=== PATIENT | male | born 1935 | race Caucasian/White ===

== ENCOUNTER 2017-01-21 11:08 | Day surgery (SDC) | payer BC ==
[2017-01-19 14:59] VITALS: BMI 31.2
[2017-01-21 13:47] VITALS: TEMP 98.1
[2017-01-21 14:44] VITALS: BP 137/50; PULSE 54
--- NOTE | 2017-01-24 09:36 | PATH ---
Surgical Pathology Report Patient Name: ORI SORIA [facility]. Rec. #: [id number] /Age/Gender: 1935 (Age: 81) / M Account: [id number] Location: ASU-ENDOSCOPY Taken: 01/21/2017 Received: 01/21/2017 Reported: 01/24/2017 Physicians: Kandice Ferrer M.D. Specimen(s) Received BX PROXIMAL TRANSVERSE COLON POLYP Clinical History Preoperative diagnosis: History of adenomatous polyps Postoperative diagnosis: Diverticulosis, colon polyp Final Diagnosis COLON, PROXIMAL TRANSVERSE, BIOPSY: TUBULAR ADENOMA. Electronically Signed Howard Crane M.D. Gross Description Received in formalin, labeled "biopsy proximal transverse colon polyp" are 2 de, irregular portions of soft tissue measuring 0.2 and 0.4 cm. in greatest dimension. The specimens are submitted in toto in one cassette. 01/21/201701/21/2017
== END 2017-01-21 14:46 | disposition home or self-care (01) ==
LOC: JASU-ENDO 11:08
PROVIDERS: ATTEND Internal Medicine Gastroenterology
PROC: 0DBL8ZX Excision of Transverse Colon, Via Natural or Artificial Opening Endoscopic, Diagnostic (ICD-10-PCS; principal; 2017-01-21 12:30)
DX: Z86.010 Personal history of colon polyps (principal); D12.3 Benign neoplasm of transverse colon; K57.30 Diverticulosis of large intestine without perforation or abscess without bleeding
CPT/HCPCS: 88305-TC

== ENCOUNTER 2018-04-15 14:07 | Emergency (ER) | payer BC ==
[2018-04-15 14:40] VITALS: BMI 37.1
--- NOTE | 2018-04-15 16:47 | PDOC ---
Attending Attestation - Resident Resident Name: Sapphire Jamil - HPI HPI: 04/15/18 18:45 The patient is an 83-year-old female with a past medical history significant for HTN, HLD, BPH, hx of diverticulitis presents to the emergency department with LLQ pain. The patient presents with LLQ pain since last night, thats 5/10 in severity that increases to 9/10 towards night time. The patient reports he took medication at 5:00 am, which help with the pain. The patient reports the pain presented again at 11:00 am, which slightly improved by 1:00 pm which his daughter arrived. The patient reports associated symptoms of hematuria. The patient reports hx of diverticulitis, however, states the pain isnt similar to prior episode. Allergies: NKDA Urologist: Dr. watts PCP: Dr. Neil GI: Dr. Ferrer. - Physicial Exam PE: 04/15/18 18:46 CONSTITUTIONAL: Well-appearing; well-nourished; in no apparent distress HEAD: Normocephalic; atraumatic EYES: PERRL; EOM intact ENMT: External appears normal; normal oropharynx NECK: Supple; non-tender; no cervical lymphadenopathy CARD: Normal S1, S2; no murmurs, rubs, or gallops RESP: Normal chest excursion with respiration; breath sounds clear and equal bilaterally; no wheezes, rhonchi, or rales ABD: No LLQ tenderness to palpation Soft, non-distended; non-tender; no palpable organomegaly, no palpable hernias. No guarding or rigidity. No CVA tenderness. EXT: Normal ROM in all four extremities; non-tender to palpation; distal pulses intact SKIN: Warm, dry, no rash NEURO: No focal neurological deficiencies. - Medical Decision Making 04/15/18 18:45 Documentation prepared by Pauline Richardson, acting as medical driver for Soni Kovacs MD. <Pauline Richardson - Last Filed: 04/15/18 18:45> - Physicial Exam PE: 04/15/18 19:39 I, Dr. Soni Kovacs, attest that the scribes documentation that appears above has been prepared under my direction and personally reviewed by me. I confirmed that the note above accurately reflects all work, treatment, procedures, and medical decision-making performed by me. Pt's labs noted and currently has a normal exam. Pt with blood in urine ct of abd and pelvis ordered to r/o kidney stone. Pt has scheduled appointment with urology already for next week. Hand Sander anticipates pt will be dc'd home after ct results with out pt f/u with urology , if ct is negative ,pt may need urine cytology to r/o bladder cancer and or cystoscopy. <Soni Kovacs - Last Filed: 04/15/18 19:41>
--- NOTE | 2018-04-15 17:04 | PDOC ---
History of Present Illness - General Chief Complaint: Pain, Acute Stated Complaint: STOMACH PAIN Time Seen by Provider: 04/15/18 16:09 - History of Present Illness Initial Comments: Sam Baker is an 83yo man with a PMH of HTN, diverticulosis, elevated LFTs, wheezing who presents with intermittent LLQ pain since last night. He states that the pain is a non-radiating ache in the LLQ. It first started last night, reaching 9/10 in intensity overnight. He took acetaminophen, and the pain nearly resolved at around 5am. Mr Baker was able to sleep at that point, but the pain started again at around 11am. He took 400mg ibuprofen, and the pain resolved again by 1pm. He decided to present to the ED anyway, however, as the pain was so severe when present. Mr Baker denies any symptoms associated with the pain including diarrhea, constipation, nausea/vomiting, dysuria, hematuria, fever, or shivering. He does note that his urine was unusually dark this morning. He also endorses a h/o BPH with low flow and frequent nocturia, but there have been no changes recently. He was previously on tamsulosin but decided to stop taking it; he has an apointment scheduled with urology on Tuesday. He does report several episodes of uncomplicated diverticulitis in the past, treated as an outpatient. Those episodes were very different than the current LLQ pain. With the diverticulitis, the pain was located much lower, nearly in the groin, and associated with bowel urgency and some diarrhea. The current pain is higher up without associated GI symptoms. Other than the current pain, Mr Baker has been feeling well recently and denies any other complaints. Past History - Past Medical History Allergies/Adverse Reactions: Allergies Allergy/AdvReac Type Severity Reaction Status Date / Time No Known Drug Allergies Allergy Verified 03/15/12 09:34 Home Medications: Ambulatory Orders Cholecalciferol (Vitamin D3) [Vitamin D] 1,000 unit PO DAILY 11/26/14 Amlodipine Besylate [Norvasc -] 5 mg PO DAILY 01/19/17 Atorvastatin Calcium [Lipitor] 20 mg PO AM 04/15/18 Montelukast Na [Singulair -] 1 mg PO DAILY 04/15/18 Anemia: No Asthma: No Cancer: No Cardiac Disorders: No CVA: No COPD: No CHF: No Dementia: No Diabetes: No GI Disorders: Yes (GASTRIC ULCER BLEED-2006, DIVERTICULITIS) Disorders: Yes (BPH) HTN: Yes Hypercholesterolemia: Yes Liver Disease: No Seizures: No Thyroid Disease: No - Surgical History Abdominal Surgery: No Appendectomy: No Cardiac Surgery: No Cholecystectomy: No Lung Surgery: No Neurologic Surgery: No Orthopedic Surgery: Yes (pin left elbow, yrs ago, 03/02/12) - Suicide/Smoking/Psychosocial Hx Smoking History: Never smoked Have you smoked in the past 12 months: No Hx Alcohol Use: No Drug/Substance Use Hx: No Substance Use Type: None Hx Substance Use Treatment: No Review of Systems - Review of Systems Comments:: General: No fevers, no chills, no weight or appetite change, no malaise HEENT: No changes in vision, no changes in hearing, no congestion, no sore throat CV: No chest pain, no palpitations, no LE edema Pulm: No SOB, no cough, no wheezing GI: No nausea or vomiting, no change in bowel habits, no melena. +LLQ pain : No frequency, no urgency, no dysuria. +dark urine, +BPH Musc: No back pain, no joint swelling, no recent injury Skin: No rash, no lesions, no erythema Endo: No excessive thirst, no heat/cold intolerance Heme: No unusual bruising or bleeding, no swollen glands Neuro: No syncope, no numbness/tingling, no focal weakness Vasc: No claudication Psych: No recent change in mood, no SI or HI *Physical Exam - Vital Signs Last Vital Signs Temp Pulse Resp BP Pulse Ox 97.9 F 85 19 163/62 95 04/15/18 14:38 04/15/18 14:38 04/15/18 14:38 04/15/18 14:38 04/15/18 14:38 - Physical Exam Comments: General: Comfortable, no acute distress HEENT: PERRL, EOMI, MMM, voice normal, normal neck ROM, no LAD Cards: RRR, no murmur appreciated Pulm: Comfortable on room air, clear to auscultation bilaterally Abd: Soft, nondistended. Minimal LLQ tenderness. No rebound, rigidity, or guarding. : No CVA tenderness Ext: Atraumatic. No LE edema. ROM intact. Strength 5/5 and equal bilaterally Vasc: Extremities WWP Skin: Normal color, no rashes or lesions Neuro: A&Ox3, CN grossly intact, normal speech, motor/sensory grossly intact and symmetric Psych: Mood appropriate to situation Moderate Sedation - Procedure Monitoring Vital Signs: Procedure Monitoring Vital Signs Temperature 97.9 F 04/15/18 14:38 Pulse Rate 85 04/15/18 14:38 Respiratory Rate 19 04/15/18 14:38 Blood Pressure 163/62 04/15/18 14:38 O2 Sat by Pulse Oximetry (%) 95 04/15/18 14:38 ED Treatment Course - LABORATORY CBC & Chemistry Diagram: 04/15/18 17:37 04/15/18 17:37 Medical Decision Making - Medical Decision Making 04/15/18 17:00 Sam Baker is an 83yo man with a PMH of HTN, diverticulosis, elevated LFTs, wheezing who presents with intermittent LLQ pain since last night. He denies any associated symptoms, and he reports that this does not feel the same as previous episodes of diverticulitis in the past. - No report of diarrhea, n/v, or other GI symptoms. Given location and known diverticulosis, could be diverticulitis despite not having the exact symptoms as previous episodes - Reports "dark" urine this morning. Could potentially be kidney stone at UVJ or distal ureter. - CBC, CMP, UA sent - Will most likely need imaging. CT kidney stone v abd/pelvis depending on lab results - States pain is 5/10 currently, does not want any pain meds currently 04/15/18 18:36 - Labs reviewed. CBC unremarkable. UA with 1148 RBCs, no sign of infection. Suspect kidney stone. Chemistry notable for mildly elevated Cr to 1.1 from baseline 0.7, Ca 10.3. - 1L NS ordered - CT renal stone ordered for suspected stone 04/15/18 20:59 - CT w/ 0.4mm obstructing R proximal ureteral stone - Will provide with urine strainer and d/c home. Will discuss home care and follow up with Mr Baker. Discussed with Dr Paula. Sapphire Jamil PGY1 *DC/Admit/Observation/Transfer Diagnosis at time of Disposition: Kidney stone on left side - Discharge Dispostion Condition at time of disposition: Stable - Referrals Referrals: Jeffery Neil MD [Primary Care Provider] - Garret Lu MD [Staff Physician] - - Patient Instructions Printed Discharge Instructions: DI for Kidney Stones Additional Instructions: Discharge Instructions: You were seen in the emergency department for abdominal pain, and you were found to have a kidney stone. You had a CT scan to confirm this, and the stone was found to be 4mm in size and located in the upper left ureter. This indicates that the stone will most likely pass on its own. Home Care: - You have been prescribed a short course of tamsulosin (Flomax) to help pass the stone. You may wish to discuss continuing this medication with your urologist to help treat your enlarged prostate. - You may use over the counter pain medications such as ibuprofen (Motrin, Advil ) 600mg every 6 hours as needed for pain. If you have continued pain, you may alternate this medication with acetaminophen (Tylenol) 650-1000mg. - Make sure you are drinking plenty of fluids to help pass the kidney stone - You have been provided a urine strainer. If you are able to catch the kidney stone when you pass it, bring the stone to your follow up urology appointment. Follow Up: - You indicated that you have a urology appointment scheduled for next Tuesday. Make sure you go to this appointment, and let your urologist know about the kidney stone. If your pain does not improve over the next few days, you may wish to reschedule your appointment for earlier in the week. - Seek immediate medical care if you have worsening of your symptoms, you do not pass the stone within 3-4 days, you stop making urine entirely, you have noticeable blood in your urine, you develop fevers to 101F, or you have any medical emergency. - Post Discharge Activity
[2018-04-15 17:44] LABS: BASO % 1.4 % (0-2.0); EOS % 2.1 % (0-4.5); HEMATOCRIT 43.7 % (35.4-49); HEMOGLOBIN 15.3 GM/dL (11.7-16.9); LYMPH % 22.4 % (8-40); MCH 31.8 pg (25.7-33.7); MEAN CELL VOLUME 90.9 fl (80-96); MEAN PLT VOLUME 8.1 fl (7.5-11.1); MONO % 8.6 % (3.8-10.2); NEUT % 65.5 % (42.8-82.8); PLATELET COUNT 212 K/MM3 (134-434); RDW 14.4 % (11.9-15.9); WHITE BLOOD COUNT 9.7 K/mm3 (4.0-10.0)
[2018-04-15 17:45] LABS: URINE APPEARANCE CLOUDY; URINE BILIRUBIN NEGATIVE (<2.0 mg/dL); URINE COLOR YELLOW; URINE GLUCOSE (UA) NEGATIVE (NEGATIVE); URINE KETONE NEGATIVE (NEGATIVE); URINE LEUK ESTERASE NEGATIVE (NEGATIVE); URINE NITRITE NEGATIVE (NEGATIVE); URINE PROTEIN 2+ (NEGATIVE); URINE UROBILINOGEN NEGATIVE mg/dL (0.2-1.0)
[2018-04-15 18:00] LABS: URINE HYALINE CAST 3 /lpf; URINE MUCUS FEW
[2018-04-15 18:20] LABS: ALK PHOS 107 U/L (45-117); ANION GAP 6 MMOL/L (8-16); BILIRUBIN,TOTAL 0.7 mg/dL (0.2-1); BLOOD UREA NITROGEN 14 mg/dL (7-18); CALCIUM 10.3 mg/dL (8.5-10.1); CHLORIDE 110 mmol/L (98-107); CO2 26 mmol/L (21-32); CREATININE 1.1 mg/dL (0.55-1.3); GLUCOSE,RANDOM 96 mg/dL (74-106); MAGNESIUM 2.1 mg/dL (1.8-2.4); PHOSPHOROUS 3.1 mg/dL (2.5-4.9); POTASSIUM 4.4 mmol/L (3.5-5.1); SGOT/AST 28 U/L (15-37); SGPT/ALT 48 U/L (13-61); SODIUM 143 mmol/L (136-145); TOT PROT 7.2 g/dl (6.4-8.2)
[2018-04-15] MEDS ORDERED: SODIUM CHLORIDE 0.9% 500 ML INFUS.BAG IV ONE (18:35)
--- NOTE | 2018-04-15 20:43 | PDOC ---
*Physical Exam - Vital Signs Last Vital Signs Temp Pulse Resp BP Pulse Ox 97.9 F 85 19 163/62 95 04/15/18 14:38 04/15/18 14:38 04/15/18 14:38 04/15/18 14:38 04/15/18 14:38 ED Treatment Course - LABORATORY CBC & Chemistry Diagram: 04/15/18 17:37 04/15/18 17:37 - ADDITIONAL ORDERS Additional order review: Laboratory Results 04/15/18 04/15/18 17:37 17:37 Sodium 143 Potassium 4.4 Chloride 110 H Carbon Dioxide 26 Anion Gap 6 L BUN 14 Creatinine 1.1 Creat Clearance w eGFR > 60 Random Glucose 96 Calcium 10.3 H Phosphorus 3.1 Magnesium 2.1 Total Bilirubin 0.7 AST 28 ALT 48 Alkaline Phosphatase 107 Total Protein 7.2 Albumin 4.0 Urine Color Yellow Urine Appearance Cloudy Urine pH 5.0 Ur Specific Rindge 1.018 Urine Protein 2+ H Urine Glucose (UA) Negative Urine Ketones Negative Urine Blood 3+ H Urine Nitrite Negative Urine Bilirubin Negative Urine Urobilinogen Negative Ur Leukocyte Esterase Negative Urine WBC (Auto) 5 Urine RBC (Auto) 1148 Hyaline Casts 3 Urine Mucus Few 04/15/18 17:37 RBC 4.80 MCV 90.9 MCHC 35.0 RDW 14.4 MPV 8.1 Neutrophils % 65.5 Lymphocytes % 22.4 D Monocytes % 8.6 Eosinophils % 2.1 Basophils % 1.4 - Medications Given in the ED: ED Medications Discontinued Medications Generic Name Dose Route Start Last Admin Trade Name Freq PRN Reason Stop Dose Admin Sodium Chloride 1,000 ml 04/15/18 18:35 04/15/18 18:39 Normal Saline - IV 04/15/18 18:36 1,000 ml ONCE ONE Administration Medical Decision Making - Medical Decision Making 04/15/18 20:49 Patient Name: ORI SORIA THIS IS A PRELIMINARY REPORT FROM [facility] [employer] DATE OF SERVICE: 2018-04-15 19:24:50 IMAGES: 499 EXAM: CT abdomen and pelvis without IV contrast. Clinical indication: Rule out stone. No further information is provided. There are no prior studies available for comparison. Technique: Axial unenhanced CT images of the abdomen and pelvis were obtained followed by coronal and sagittal reformats. Findings: Visualized portions of the lower thorax are within normal limits. There is no free intra-abdominal gas or fluid. Within segment 4 of the liver there is a low density well-circumscribed nodule which likely represents an hepatic cyst or hemangioma. There is a similar smaller one within segment 3 of the liver. The remainder of the liver is unremarkable. The gallbladder, adrenals, pancreas, and spleen are normal. Within the proximal aspect of the left ureter there is a 0.4 cm stone causing left-sided hydronephrosis and some left-sided perinephric fat stranding. There are no other renal calculi bilaterally. There are some probable left-sided parapelvic cysts. The bilateral kidneys are otherwise unremarkable, given limitations of an unenhanced CT. There are no enlarged abdominal or pelvic lymph nodes, by size criteria. The urinary bladder is unremarkable. The prostate is significantly enlarged measuring 7.2 cm in maximum diameter. There is extensive colonic diverticulosis without evidence of diverticulitis. The appendix is normal. There is a small hiatal hernia. The remainder of the visualized portions of the bowel are unremarkable. There is a small umbilical hernia containing omental fat. There is lower lumbar degenerative disc disease. The remainder the visualized bony structures are unremarkable for the patient's age. Impression: 1. 0.4 cm stone obstructing the proximal left ureter. 2. No other renal calculi bilaterally. 3. Enlarged prostate. Number for extensive colonic diverticulosis, without evidence of diverticulitis. 5.. Small hiatal hernia. 6. Small umbilical hernia. THIS DOCUMENT HAS BEEN ELECTRONICALLY SIGNED Pt has a normal BUN/CR. He came with renal colic and hematuria. He will be sent home with flomax and he will follow with his docs. *DC/Admit/Observation/Transfer Diagnosis at time of Disposition: Kidney stone on left side - Discharge Dispostion Condition at time of disposition: Stable - Referrals Referrals: Jeffery Neil MD [Primary Care Provider] - Garret Lu MD [Staff Physician] - - Patient Instructions Printed Discharge Instructions: DI for Kidney Stones Additional Instructions: Discharge Instructions: You were seen in the emergency department for abdominal pain, and you were found to have a kidney stone. You had a CT scan to confirm this, and the stone was found to be mm in size and located . This indicates that the stone will most likely pass on its own. Home Care: - You have been prescribed a short course of tamsulosin (Flomax) to help pass the stone. You may wish to discuss continuing this medication with your urologist to help treat your enlarged prostate. - You may use over the counter pain medications such as ibuprofen (Motrin, Advil ) 600mg every 6 hours as needed for pain. If you have continued pain, you may alternate this medication with acetaminophen (Tylenol) 650-1000mg. - Make sure you are drinking plenty of fluids to help pass the kidney stone - You have been provided a urine strainer. If you are able to catch the kidney stone when you pass it, bring the stone to your follow up urology appointment. Follow Up: - You indicated that you have a urology appointment scheduled for next Tuesday. Make sure you go to this appointment, and let your urologist know about the kidney stone. If your pain does not improve over the next few days, you may wish to reschedule your appointment for earlier in the week. - Seek immediate medical care if you have worsening of your symptoms, you do not pass the stone within 3-4 days, you stop making urine entirely, you have noticeable blood in your urine, you develop fevers to 101F, or you have any medical emergency. - Post Discharge Activity
[2018-04-15] MEDS ORDERED: TAMSULOSIN HCL 0.4 MG CAP PO ONE (20:47)
[2018-04-15 21:04] VITALS: BP 154/64; PULSE 80; TEMP 98.1
[2018-04-15] MEDS ORDERED: TAMSULOSIN HCL 0.4 MG CAP ONE (21:19)
--- NOTE | 2018-04-18 13:54 | EKG ---
Test Reason : Blood Pressure : / mmHG Vent. Rate : 071 BPM Atrial Rate : 071 BPM P-R Int : 190 ms QRS Dur : 106 ms QT Int : 400 ms P-R-T Axes : 066 -20 074 degrees QTc Int : 434 ms NORMAL SINUS RHYTHM CANNOT RULE OUT ANTERIOR INFARCT , AGE UNDETERMINED ABNORMAL ECG WHEN COMPARED WITH ECG OF 03-MAR-2005 19:17, T WAVE INVERSION NOW EVIDENT IN LATERAL LEADS Confirmed by MD Juan, Tae ([id number]) on 04/18/2018 1:54:14 PM Referred By: Confirmed By:Tae Martinez MD
== END 2018-04-15 21:35 | disposition home or self-care (01) ==
LOC: JER 14:07
DX: N20.0 Calculus of kidney (principal); N40.1 Benign prostatic hyperplasia with lower urinary tract symptoms; R35.1 Nocturia; I10 Essential (primary) hypertension; E78.00 Pure hypercholesterolemia, unspecified; Z87.19 Personal history of other diseases of the digestive system; R74.8 Abnormal levels of other serum enzymes
CPT/HCPCS: 36415; 74176-TC; 80053; 81003; 81015; 83735; 84100; 85025; 93005; 93010; 99284-25

== ENCOUNTER 2020-02-29 10:25 | Inpatient (IN) | payer BC, OTHER ==
[2020-02-29] MEDS ORDERED: ACETAMINOPHEN 1000 MG/100 ML VIAL (NON FORMULARY) IVPB ONE (11:41)
[2020-02-29] MEDS ORDERED: SODIUM CHLORIDE 1,000 ML IV STA (11:41)
[2020-02-29] MEDS ORDERED: ACETAMINOPHEN INJECTION 100 ML IVPB ONE (11:58)
[2020-02-29 12:08] LABS: VENOUS BASE EXCESS 2.1 mmol/L (-2-2); VENOUS O2 SATURATION 75.3 % (70-80); VENOUS PCO2 37.7 mmHg (38-52); VENOUS PH 7.454 (7.310-7.410)
[2020-02-29 12:12] LABS: BASO % 0.5 % (0-2.0); HEMATOCRIT 40.6 % (35.4-49); HEMOGLOBIN 13.7 GM/dL (11.7-16.9); LYMPH % 6.7 % (8-40); MCH 30.4 pg (25.7-33.7); MCHC 33.7 g/dl (32.0-35.9); MEAN CELL VOLUME 90.4 fl (80-96); MEAN PLT VOLUME 8.3 fl (7.5-11.1); MONO % 5.8 % (3.8-10.2); PLATELET COUNT 157 K/MM3 (134-434); RBC 4.49 M/mm3 (4.00-5.60); RDW 14.1 % (11.9-15.9); WHITE BLOOD COUNT 10.2 K/mm3 (4.0-10.0)
[2020-02-29 12:19] LABS: INR 1.4 (0.83-1.09); PROTHROMBIN TIME (PATIENT) 16.8 SEC (9.7-13.0)
[2020-02-29 12:22] LABS: ACTIVATED PTT 32.8 SECONDS (25.2-36.5)
[2020-02-29 12:32] LABS: CHLORIDE 108 mmol/L (98-107); POTASSIUM 3.8 mmol/L (3.5-5.1); SODIUM 140 mmol/L (136-145)
[2020-02-29 12:34] LABS: ANION GAP 7 MMOL/L (8-16); BLOOD UREA NITROGEN 21.6 mg/dL (7-18); CALCIUM 10.2 mg/dL (8.5-10.1); CO2 25 mmol/L (21-32)
[2020-02-29 12:36] LABS: GLUCOSE,RANDOM 132 mg/dL (74-106)
[2020-02-29 12:37] LABS: BILIRUBIN,DIRECT 0.4 mg/dL (0.0-0.2); CREATININE 1.3 mg/dL (0.55-1.3); SGOT/AST 19 U/L (15-37); SGPT/ALT 25 U/L (13-61)
[2020-02-29 12:39] LABS: LDH 166 U/L (87-246)
[2020-02-29 12:40] LABS: BILIRUBIN,TOTAL 1.2 mg/dL (0.2-1); TOT PROT 6.1 g/dl (6.4-8.2)
[2020-02-29 12:41] LABS: ALK PHOS 89 U/L (45-117)
[2020-02-29] MEDS ORDERED: DEXAMETHASONE SOD PHOSPHATE 4 MG/1 ML VIAL IVPUSH ONE (13:39)
[2020-02-29] MEDS ORDERED: DEXAMETHASONE SOD PHOSPHATE 10 MG/1 ML VIAL ONE (13:46)
[2020-02-29 16:33] LABS: EPI CELLS 4 /uL (0-25.1); HYALINE CASTS 25 /uL (0-3.1); PH,URINE 5.5 (5.0-8.0); URINE APPEARANCE CLOUDY; URINE BACTERIA 8493 /uL (0-1359); URINE BILIRUBIN NEGATIVE (NEGATIVE); URINE COLOR YELLOW; URINE GLUCOSE (UA) NEGATIVE (NEGATIVE); URINE KETONE NEGATIVE (NEGATIVE); URINE LEUK ESTERASE 1+ (NEGATIVE); URINE NITRITE POSITIVE (NEGATIVE); URINE PROTEIN TRACE (NEGATIVE); URINE RBC 14 /uL (0-23.9); URINE WBC 639 /uL (0-25.8)
[2020-02-29] MEDS ORDERED: CEFTRIAXONE 1 GM in DEXTROSE 5%-WATER - 100 ML IVPB ONE (16:50)
[2020-02-29] MEDS ORDERED: CEFTRIAXONE 1 GM/50 ML BAG ONE (17:02)
[2020-02-29] MEDS: HEPARIN NA (PORCINE) 5,000 UNITS/ML 1ML VIAL SQ SCH (22:09)
[2020-02-29] MEDS ORDERED: SODIUM CHLORIDE 1,000 ML IV SCH (23:15)
[2020-03-01] MEDS: HEPARIN NA (PORCINE) 5,000 UNITS/ML 1ML VIAL SQ SCH ×3 (06:39→21:28)
[2020-03-01 09:42] LABS: HEMATOCRIT 38.5 % (35.4-49); HEMOGLOBIN 13.2 GM/dL (11.7-16.9); MCH 30.7 pg (25.7-33.7); MCHC 34.3 g/dl (32.0-35.9); MEAN CELL VOLUME 89.7 fl (80-96); MEAN PLT VOLUME 9.5 fl (7.5-11.1); PLATELET COUNT 177 K/MM3 (134-434); RBC 4.29 M/mm3 (4.00-5.60); RDW 14.1 % (11.9-15.9)
[2020-03-01] MEDS ORDERED: DEXAMETHASONE SOD PHOSPHATE 10 MG/1 ML VIAL IVPB ONE (10:00)
[2020-03-01 10:05] LABS: ALBUMIN 2.8 g/dl (3.4-5.0)
[2020-03-01 10:06] LABS: BLOOD UREA NITROGEN 25.7 mg/dL (7-18); MAGNESIUM 2.2 mg/dL (1.8-2.4)
[2020-03-01 10:09] LABS: PHOSPHOROUS 2.1 mg/dL (2.5-4.9)
[2020-03-01 10:11] LABS: BILIRUBIN,TOTAL 0.9 mg/dL (0.2-1); TOT PROT 5.9 g/dl (6.4-8.2)
[2020-03-01] MEDS ORDERED: DEXTROSE 5%-WATER - 50 ML IVPB ONE (10:25)
[2020-03-01] MEDS ORDERED: cefTRIAXone SODIUM 1 GM VIAL ONE (10:25)
[2020-03-01] MEDS: CEFTRIAXONE 1 GM in DEXTROSE 5%-WATER - 50 ML IVPB SCH (10:29)
[2020-03-01] MEDS: AZITHROMYCIN IVPB 500 MG/250 ML BAG IVPB SCH (11:28)
[2020-03-01] MEDS ORDERED: PT OWN MED DRAWER 7, Y5N ONE (13:22)
[2020-03-01] MEDS: ATORVASTATIN CA 20 MG TABLET (FP) PO SCH (21:29)
[2020-03-01] MEDS: MONTELUKAST NA 10 MG TABLET PO SCH (21:29)
[2020-03-02] MEDS: HEPARIN NA (PORCINE) 5,000 UNITS/ML 1ML VIAL SQ SCH ×3 (06:14→21:26)
[2020-03-02] MEDS ORDERED: cefTRIAXone SODIUM 1 GM VIAL ONE (09:17)
[2020-03-02] MEDS ORDERED: DEXTROSE 5%-WATER - 50 ML IVPB ONE (09:17)
[2020-03-02] MEDS: CEFTRIAXONE 1 GM in DEXTROSE 5%-WATER - 50 ML IVPB SCH (09:21)
[2020-03-02] MEDS: amLODIPine BESYLATE 5 MG TABLET (FP) PO SCH (09:22)
[2020-03-02] MEDS: CHOLECALCIFEROL (VIT D3) 1,000 UNIT (25 MCG) TABLET PO SCH (09:22)
[2020-03-02] MEDS: TAMSULOSIN HCL 0.4 MG CAP PO SCH (09:22)
[2020-03-02] MEDS: AZITHROMYCIN IVPB 500 MG/250 ML BAG IVPB SCH (10:02)
[2020-03-02 10:28] LABS: HEMATOCRIT 37.2 % (35.4-49); HEMOGLOBIN 12.7 GM/dL (11.7-16.9); MCH 30.7 pg (25.7-33.7); MCHC 34.2 g/dl (32.0-35.9); MEAN CELL VOLUME 89.9 fl (80-96); MEAN PLT VOLUME 9.6 fl (7.5-11.1); PLATELET COUNT 213 K/MM3 (134-434); RBC 4.14 M/mm3 (4.00-5.60); RDW 14.1 % (11.9-15.9); WHITE BLOOD COUNT 12.4 K/mm3 (4.0-10.0)
[2020-03-02 10:49] LABS: POTASSIUM 4.2 mmol/L (3.5-5.1)
[2020-03-02 11:06] LABS: CALCIUM 10.1 mg/dL (8.5-10.1)
[2020-03-02 11:08] LABS: ALBUMIN 2.8 g/dl (3.4-5.0); BLOOD UREA NITROGEN 30.8 mg/dL (7-18)
[2020-03-02 11:11] LABS: BILIRUBIN,TOTAL 0.8 mg/dL (0.2-1); TOT PROT 5.7 g/dl (6.4-8.2)
[2020-03-02 11:34] VITALS: BMI 34.5
[2020-03-02] MEDS: ATORVASTATIN CA 20 MG TABLET (FP) PO SCH (21:27)
[2020-03-02] MEDS: MONTELUKAST NA 10 MG TABLET PO SCH (21:27)
[2020-03-03] MEDS: HEPARIN NA (PORCINE) 5,000 UNITS/ML 1ML VIAL SQ SCH ×2 (05:39→14:55)
[2020-03-03] MEDS ORDERED: DEXTROSE 5%-WATER - 50 ML IVPB ONE (09:18)
[2020-03-03] MEDS ORDERED: cefTRIAXone SODIUM 1 GM VIAL ONE (09:18)
[2020-03-03] MEDS: CEFTRIAXONE 1 GM in DEXTROSE 5%-WATER - 50 ML IVPB SCH (09:41)
[2020-03-03] MEDS: CHOLECALCIFEROL (VIT D3) 1,000 UNIT (25 MCG) TABLET PO SCH (09:42)
[2020-03-03] MEDS: TAMSULOSIN HCL 0.4 MG CAP PO SCH (09:42)
[2020-03-03] MEDS: amLODIPine BESYLATE 5 MG TABLET (FP) PO SCH (09:42)
[2020-03-03 10:01] LABS: HEMATOCRIT 36.5 % (35.4-49); HEMOGLOBIN 12.5 GM/dL (11.7-16.9); MCH 30.5 pg (25.7-33.7); MCHC 34.1 g/dl (32.0-35.9); MEAN CELL VOLUME 89.4 fl (80-96); MEAN PLT VOLUME 9.3 fl (7.5-11.1); PLATELET COUNT 212 K/MM3 (134-434); RBC 4.09 M/mm3 (4.00-5.60); RDW 13.9 % (11.9-15.9); WHITE BLOOD COUNT 7.8 K/mm3 (4.0-10.0)
[2020-03-03 10:20] LABS: POTASSIUM 3.6 mmol/L (3.5-5.1)
[2020-03-03 10:23] LABS: CALCIUM 9.3 mg/dL (8.5-10.1)
[2020-03-03 10:24] LABS: ALBUMIN 2.7 g/dl (3.4-5.0); BLOOD UREA NITROGEN 28.5 mg/dL (7-18)
[2020-03-03 10:27] LABS: CREATININE 0.9 mg/dL (0.55-1.3)
[2020-03-03 10:29] LABS: BILIRUBIN,TOTAL 0.5 mg/dL (0.2-1); TOT PROT 5.5 g/dl (6.4-8.2)
[2020-03-03] MEDS ORDERED: PT OWN MED DRAWER 7, Y5N ONE (14:45)
[2020-03-03 15:25] VITALS: BP 112/44; PULSE 64; TEMP 98
== END 2020-03-03 15:51 | disposition home or self-care (01) | DRG 871 ==
LOC: JER 10:25 → JERBED 14:18 → J8W 18:34
PROVIDERS: ADMIT Internal Medicine; ATTEND Family Medicine
DX: A41.9 Sepsis, unspecified organism (principal); J18.9 Pneumonia, unspecified organism; N39.0 Urinary tract infection, site not specified; J98.11 Atelectasis; N40.1 Benign prostatic hyperplasia with lower urinary tract symptoms; I10 Essential (primary) hypertension; R11.2 Nausea with vomiting, unspecified; R33.9 Retention of urine, unspecified; R53.1 Weakness; E78.5 Hyperlipidemia, unspecified; E66.9 Obesity, unspecified; Z68.34 Body mass index [BMI] 34.0-34.9, adult; R09.02 Hypoxemia
CPT/HCPCS: 36415; 71045-TC-FY; 80053; 81003; 82248; 82550; 82728; 82803; 83605; 83615; 83735; 84100; 84484; 85025; 85027; 85610; 85730; 86140; 87040; 87086; 93005; 93010; 94761; 99285-25; C9803; J0131; J1100; J1644; U0003

== ENCOUNTER 2020-10-23 04:20 | Day surgery (SDC) | payer BC ==
[2020-10-21 14:18] VITALS: BMI 32.5
[2020-10-23] MEDS ORDERED: LIDOCAINE HCL/PF 2% SDV 5ML VIAL ONE (07:07)
[2020-10-23] MEDS ORDERED: PROPOFOL 20 ML ONE ×2 (07:08→08:08)
[2020-10-23] MEDS ORDERED: ceFAZolin SODIUM 1 GM VIAL ONE (07:44)
[2020-10-23] MEDS ORDERED: ceFAZolin SODIUM 1 GM VIAL IVPB ONE (07:45)
[2020-10-23] MEDS ORDERED: oxyCODONE HCL 5 MG TABLET PO PRN (08:39)
[2020-10-23] MEDS ORDERED: DEXTROSE 5%-0.45% SALINE 1,000 ML IV SCH (08:45)
[2020-10-23] MEDS ORDERED: ONDANSETRON 4 MG/2 ML VIAL IVPUSH PRN (09:38)
[2020-10-23] MEDS ORDERED: LACTATED RINGERS SOLUTION 1,000 ML IV SCH (09:45)
[2020-10-23 13:09] VITALS: BP 129/63; PULSE 74; TEMP 96.9
== END 2020-10-23 12:55 | disposition home or self-care (01) ==
LOC: JASU-SURG 04:20
PROVIDERS: ATTEND Urology
PROC: 0VT08ZZ Resection of Prostate, Via Natural or Artificial Opening Endoscopic (ICD-10-PCS; principal; 2020-10-23 07:45)
DX: N40.1 Benign prostatic hyperplasia with lower urinary tract symptoms (principal)
CPT/HCPCS: 88305-TC; 94760

== ENCOUNTER 2021-06-02 11:45 | Emergency (ER) | payer OTHER ==
[2021-06-02 11:57] VITALS: BP 123/62; PULSE 96; TEMP 97.9; BMI 37.9
[2021-06-02 14:48] LABS: BASO % 1.4 % (0-2.0); EOS % 2.2 % (0-4.5); HEMATOCRIT 41.2 % (35.4-49); LYMPH % 24.3 % (8-40); MCH 29.7 pg (25.7-33.7); MCHC 33.9 g/dl (32.0-35.9); MEAN CELL VOLUME 87.7 fl (80-96); MEAN PLT VOLUME 8.2 fl (7.5-11.1); NEUT % 61.1 % (42.8-82.8); PLATELET COUNT 230 10^3/uL (134-434); RBC 4.69 M/mm3 (4.00-5.60); RDW 14.8 % (11.9-15.9); WHITE BLOOD COUNT 7.7 K/mm3 (4.0-10.0)
[2021-06-02 15:09] LABS: CALCIUM 10.6 mg/dL (8.5-10.1)
[2021-06-02 15:10] LABS: ALBUMIN 3.8 g/dl (3.4-5.0)
[2021-06-02 15:15] LABS: BILIRUBIN,TOTAL 0.7 mg/dL (0.2-1)
[2021-06-02 15:22] LABS: EPI CELLS 0 /uL (0-25.1); HYALINE CASTS 0 /uL (0-3.1); URINE APPEARANCE CLOUDY; URINE BACTERIA 0 /uL (0-1359); URINE BILIRUBIN 1+ (NEGATIVE); URINE COLOR ORANGE; URINE GLUCOSE (UA) NEGATIVE (NEGATIVE); URINE KETONE NEGATIVE (NEGATIVE); URINE LEUK ESTERASE 1+ (NEGATIVE); URINE NITRITE NEGATIVE (NEGATIVE); URINE PROTEIN 2+ (NEGATIVE); URINE RBC 56 /uL (0-23.9); URINE UROBILINOGEN 0.2 mg/dL (0.2-1.0); URINE WBC 1 /uL (0-25.8)
[2021-06-02 15:29] LABS: INR 1.24 (0.83-1.09); PROTHROMBIN TIME (PATIENT) 14.3 SEC (9.7-13.0)
[2021-06-02 15:32] LABS: ACTIVATED PTT 34.1 SECONDS (25.2-36.5)
== END 2021-06-02 16:07 | disposition home or self-care (01) ==
LOC: JER 11:45
DX: R31.29 Other microscopic hematuria (principal)
CPT/HCPCS: 36415; 80053; 81003; 82550; 85025; 85610; 85730; 87086; 99283-25

== ENCOUNTER 2022-03-15 04:12 | Day surgery (SDC) | payer OTHER ==
[2022-03-11 13:36] VITALS: BMI 28.4
[2022-03-15] MEDS ORDERED: KETAMINE HCL 500 MG/10 ML VIAL ONE (07:19)
[2022-03-15] MEDS ORDERED: TETRACAINE/BENZOCAINE/BUTAMBEN 20 GM SPR TP ONE (08:34)
[2022-03-15] MEDS ORDERED: DEXMEDETOMIDINE HCL 200 MCG/2 ML IVPB ONE (08:37)
[2022-03-15 08:39] VITALS: TEMP 97.8
[2022-03-15 09:24] VITALS: BP 128/54; PULSE 78; RESP 18
== END 2022-03-15 09:25 | disposition home or self-care (01) ==
LOC: JASU-ENDO 04:12
PROVIDERS: ATTEND Internal Medicine Gastroenterology
PROC: 0DBL8ZX Excision of Transverse Colon, Via Natural or Artificial Opening Endoscopic, Diagnostic (ICD-10-PCS; principal; 2022-03-15 08:00)
DX: Z12.11 Encounter for screening for malignant neoplasm of colon (principal); D12.3 Benign neoplasm of transverse colon; K64.8 Other hemorrhoids; K57.30 Diverticulosis of large intestine without perforation or abscess without bleeding; Z86.010 Personal history of colon polyps
CPT/HCPCS: 88305-TC